=== PATIENT | male | born 1980 ===

== ENCOUNTER 2016-12-26 17:14 | Emergency (ER) | payer OTHER ==
[2016-12-26] MEDS ORDERED: Sodium Chloride 0.9% 1,000 ML IV ONE (18:18)
--- NOTE | 2016-12-26 18:18 | C.PDOC ---
History Of Present Illness 36 y/o male presents to the ED for evaluation after being referred by Dr. Yang Antoine and/or Vascular Surgeon for evaluation of chronic right lower extremity pain. Patient has PMHx of Osteomyelitis (16 years ago) with bone fragment replacement from right iliac crest region; no hardware placement. Patient denies fever, chills. Time Seen by Provider: 12/26/16 18:05 Chief Complaint (Nursing): Lower Extremity Problem/Injury History Per: Patient History/Exam Limitations: no limitations Onset/Duration Of Symptoms: Persistent Current Symptoms Are (Timing): Still Present Additional History Per: Patient - Knee Description Of Injury: denies: Fell - Ankle/Foot Description Of Injury: denies: Fell Past Medical History Reviewed: Historical Data, Nursing Documentation, Vital Signs Vital Signs: Last Vital Signs Temp 98.0 F 12/26/16 17:37 Pulse 78 12/26/16 17:37 Resp 16 12/26/16 17:37 BP 116/68 12/26/16 17:37 Pulse Ox 98 12/26/16 19:04 - Medical History PMH: No Chronic Diseases Surgical History: No Surg Hx Family History: States: Unknown Family Hx - Social History Hx Alcohol Use: Yes Hx Substance Use: No - Immunization History Hx Tetanus Toxoid Vaccination: No Hx Influenza Vaccination: No Hx Pneumococcal Vaccination: No Review Of Systems Except As Marked, All Systems Reviewed And Found Negative. Constitutional: Negative for: Fever, Chills Musculoskeletal: Positive for: Other (chronic RLE pain ) Physical Exam - Physical Exam Appears: Non-toxic, No Acute Distress Skin: Normal Color, Warm, Dry Head: Atraumatic Eye(s): bilateral: Normal Inspection Oral Mucosa: Moist Neck: Supple Extremity: Normal ROM, No Tenderness, No Calf Tenderness, Capillary Refill ( less than 2 seconds ), Deformity (bony deformity to mid-anterior region of right lower extremity. no fluctuance ), No Swelling Pulses: Left Dorsalis Pedis: Normal, Right Dorsalis Pedis: Normal Neurological/Psych: Oriented x3, Normal Speech, Normal Cognition, Normal Motor, Normal Sensation Gait: Steady ED Course And Treatment O2 Sat by Pulse Oximetry: 98 (on RA) Pulse Ox Interpretation: Normal Progress Note: CT right lower extremity ordered and reviewed. Pt received Motrin PO, Ultram PO, and IVF. Medical Decision Making Medical Decision Makin: Worstenig R lower leg pain for 1 month, concerning for recurrent osteomyelitis of R lower leg- h/o osteomyelitis same area 16 yrs ago Referred by Dr. Yang Antoine- Insurance designated Ortho- earlier today, no Rx given 1844: call to Dr. Antoine to clarify, awaiting call back Plan: f/u CT and labs and d/w Dr. Antoine. Disposition - Disposition Disposition Time: 19:00 Condition: GOOD - Clinical Impression Clinical Impression: Right leg pain - Scribe Statement The provider has reviewed the documentation as recorded by the Scribe (Demetrice Fontaine) Provider Attestation: All medical record entries made by the Scribe were at my direction and personally dictated by me. I have reviewed the chart and agree that the record accurately reflects my personal performance of the history, physical exam, medical decision making, and the department course for this patient. I have also personally directed, reviewed, and agree with the discharge instructions and disposition. Physician Patient Turnover Patient Signed Over To: Becca Stover Handoff Comments: follow-up CT and labs and d/w Dr. Antoine- Ortho Consult referred pt.
[2016-12-26] MEDS ORDERED: Iohexol 300 100 ML IJ ONE (18:51)
[2016-12-26 19:04] LABS: BASO % 0.5 % (0.0-2.0); EOS # 0.1 K/uL (0.0-0.7); EOS % 1.2 % (0.0-4.0); HEMATOCRIT 44.5 % (35.0-51.0); LYMPH # 3.1 K/uL (1.0-4.3); LYMPH % 33.6 % (20.0-40.0); MEAN CELL VOLUME 86.2 fL (80.0-94.0); MEAN CORPUSCULAR HEMOGLOBIN 28.3 pg (27.0-31.0); MEAN CORPUSCULAR HGB CONC 32.8 g/dL (33.0-37.0); MEAN PLATELET VOLUME 8.7 fL (7.2-11.7); MONO # 0.6 K/uL (0.0-0.8); MONO % 6.3 % (0.0-10.0); NRBC % 0.1 % (0.0-2.0); RED CELL DISTRIBUTION WIDTH 13.8 % (11.5-14.5); WHITE BLOOD COUNT 9.3 K/uL (4.8-10.8)
[2016-12-26 19:08] LABS: CHLORIDE 99 mmol/L (98-107); SODIUM 137 mmol/L (132-148)
[2016-12-26 19:09] LABS: POTASSIUM 3.6 mmol/L (3.6-5.2)
[2016-12-26 19:11] LABS: ALB/GLOB RATIO 1.7 (1.0-2.1); ALKALINE PHOSPHATASE 76 U/L (38-126); AST/SGOT 26 U/L (17-59); BILIRUBIN,TOTAL 0.5 mg/dL (0.2-1.3); BLOOD UREA NITROGEN 19 mg/dL (9-20); CARBON DIOXIDE 28 mmol/L (22-30); GFR AFRICAN-AMERICAN > 60; TOTAL PROTEIN 8.2 g/dL (6.3-8.3)
[2016-12-26 19:12] LABS: ALT/SGPT 30 U/L (21-72); GLUCOSE,RANDOM 88 mg/dL (75-110)
[2016-12-26] MEDS ORDERED: Sodium Chloride 0.9% 1,000 ML ONE (19:22)
[2016-12-26 21:01] VITALS: TEMP 98.3
[2016-12-26 22:06] VITALS: BP 153/89; PULSE 78; RESP 16; O2SAT 98
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
== END 2016-12-26 22:06 | disposition home or self-care (01) ==
LOC: C.ER 17:14
DX: M79.604 Pain in right leg (principal)
CPT/HCPCS: 73701; 80053; 85025; 87040; 99285; J7040; Q9967